=== PATIENT | male | born 2000 | race Caucasian/White ===

== ENCOUNTER 2018-01-21 21:21 | Emergency (ER) | END 2018-01-21 23:17 | disposition home or self-care (01) ==

== ENCOUNTER 2018-05-25 15:46 | Emergency (ER) | payer OTHER ==
[~2018-05-25] VITALS: Ht 157.5 cm; Wt 55.9 kg
[~2018-05-25 15:46] MED LIST: BEN25 PO; CETI10CA PO; HYDR28.334 TP
[2018-05-25 15:59] VITALS: BP 127/71; PULSE 103; RESP 20; Ht 157.5 cm; Wt 55.9 kg
[2018-05-25] MEDS ORDERED: D-ME118S24 PO (19:16)
[2018-05-25] MEDS ORDERED: AZIT250T13 PO (19:16)
[2018-05-25] MEDS ORDERED: IBUP-1561 PO (19:17)
--- NOTE | 2018-05-25 19:18 | ERD ---
ER Documentation Chief Complaint Chief Complaint Complains of o caogh with hempotysis ROS All systems reviewed and are negative except as per history of present illness. Medications Home Meds Active Scripts Ibuprofen* (Motrin*) 400 Mg Tab, 400 MG PO Q6H PRN for PAIN, #30 TAB Prov:TAMMY MCCARTY DO 05/25/18 D-Methorphan Hb/P-Epd HCl/Bpm (Bhhymtyfca-Npwuzvevmsf-Kq Syr) 118 Ml Syrup, 5 ML PO Q4H PRN for COUGH, #1 BOTTLE Prov:TAMMY MCCARTY DO 05/25/18 Azithromycin* (Azithromycin*) 250 Mg Tablet, 250 MG PO DAILY for pneumonia, #6 TAB take 2 tabs (500mg) on day one, then 1 tab (250mg) once daily for day 2 to day 5 Prov:TAMMY MCCARTY DO 05/25/18 Hydrocortisone (Hydrocortisone Cr) 28.35 Gm Cr, 28.35 GM TP BID PRN for ITCHING for 7 Days, #1 TUBE Prov:TAMMY MCCARTY DO 01/21/18 Cetirizine Hcl* (Zyrtec*) 10 Mg Capsule, 10 MG PO DAILY PRN for ITCHING, #20 TAB Prov:TAMMY MCCARTY DO 01/21/18 Diphenhydramine Hcl* (Benadryl*) 25 Mg Cap, 25 MG PO Q6 PRN for ITCHING/RASH, #30 TAB Prov:TAMMY MCCARTY DO 01/21/18 PMhx/Soc History of Surgery: Yes (HERNIA) Hx Alcohol Use: No Hx Substance Use: No Hx Tobacco Use: No Smoking Status: Never smoker Physical Exam Vitals Vital Signs Date Temp Pulse Resp B/P (MAP) Pulse Ox O2 O2 Flow FiO2 Time Delivery Rate 05/25/18 99.0 103 20 127/71 99 15:59 (89) Physical Exam Const: No acute distress Head: Atraumatic Eyes: Normal Conjunctiva ENT: Normal External Ears, Nose and Mouth. Neck: Full range of motion. No meningismus. Resp: Clear to auscultation bilaterally Cardio: Regular rate and rhythm, no murmurs Abd: Soft, non tender, non distended. Normal bowel sounds Skin: No petechiae or rashes Back: No midline or flank tenderness Ext: No cyanosis, or edema Neur: Awake and alert Psych: Normal Mood and Affect Departure Diagnosis: Primary Impression: Pneumonia Pneumonia type: due to unspecified organism Laterality: left Lung location: upper lobe of lung Qualified Codes: J18.1 - Lobar pneumonia, unspecified organism Condition: Fair Patient Instructions: Pneumonia (Adult) Additional Instructions: Call your primary care doctor TOMORROW for an appointment during the next 1-2 days.See the doctor sooner or return here if your condition worsens before your appointment time. TAMMY MCCARTY DO May 25, 2018 19:18
== END 2018-05-25 19:28 | disposition home or self-care (01) ==
LOC: FTE 15:46
DX: J18.1 Lobar pneumonia, unspecified organism (principal)
CPT/HCPCS: 71046; Z7502